=== PATIENT | female | born 1955 | race Two or more races ===

== ENCOUNTER 2025-07-12 12:58 | Emergency (ER) | payer OTHER ==
[~2025-07-12] VITALS: Ht 162.6 cm; Wt 54.4 kg
[2025-07-12] MEDS ORDERED: 0.9 % SODIUM CHLORIDE 1,000 ML IV SCH (15:00)
[2025-07-12] MEDS ORDERED: FAMOTIDINE/PF 20 MG in 0.9 % SODIUM CHLORIDE 8 ML IV PUSH ONE (15:00)
[2025-07-12] MEDS ORDERED: GUAIFEN/DEXTROMETHORPHAN/PE 10 ML BLIST.PACK PO ONE ×2 (15:00→15:37)
[2025-07-12] MEDS ORDERED: ACETAMINOPHEN 500 MG GEL..CAP PO ONE ×2 (15:00→15:34)
[2025-07-12 16:17] LABS: BASO % 0.2 % (0.1-1.2); EOS # 0.01 (0.04-0.54); EOS % 0.2 % (0.7-7.0); LYMPH # 0.61 (1.18-3.74); LYMPH % 13.6 % (19.3-53.1); MEAN PLATELET VOLUME 10.30 fl (9.4-12.4); MONO # 0.11 (0.24-0.82); MONO % 2.5 % (4.7-12.5); NEUT # 3.70 (1.56-6.13); NEUT % 82.8 % (34.0-71.1); RED CELL DISTRIBUTION WIDTH 13.6 % (11.6-14.4)
[2025-07-12 16:21] LABS: INR 1.14
[2025-07-12 16:24] LABS: ALT/SGPT 85.0 U/L (12-78); AST/SGOT 105.0 U/L (15-37); BILIRUBIN TOTAL 0.4 mg/dL (0.3-1.2); BUN CREA RATIO 15.0 (7.0-25.0); CREATININE SERUM 0.81 mg/dL (0.55-1.02); GFR 69.9; GLOBULINA 3.5 G/DL (2.4-3.5); GLUCOSE FASTING 111.0 mg/dL (65-100); OSMOLALITY SERUM 274.0 MOSM/KG (275-295)
[2025-07-12 16:29] LABS: ERYTHROCYTE SEDIMENTATION RATE 31 mm/hr (0-30)
[2025-07-12 16:48] LABS: COVID-19 AG NEGATIVE (NEGATIVE)
[2025-07-12 17:12] LABS: BAND MAN 11.0 %; LYMPHOCYTE MAN 15.0 %; MONOCYTE MAN 2.0 %; NEUTROPHILS MAN 71.0 %
[2025-07-12 17:51] LABS: URINE APPEARANCE Clear; URINE BILIRRUBIN Negative (NEGATIVE); URINE BLOOD Negative; URINE COLOR Yellow; URINE GLUCOSE Negative (NEGATIVE); URINE KETONE Negative (NEGATIVE); URINE LEUKOCYTE Negative; URINE NITRATE Negative; URINE PROTEIN Negative (NEGATIVE); URINE UROBILINOGEN 0.2 E.U./dl
[2025-07-12 17:55] LABS: URINE BACTERIA 7.1 uL (0.0-1933); URINE EPITHELIAL CELLS 30.7 uL (0.0-38.8); URINE RBC 7.3 uL (0.0-20.8); URINE WBC 2.9 uL (0.0-23.2)
[2025-07-12 18:09] LABS: TYPE CELLS RENAL TUBULAR; URINE CAST 0.00 uL (0.0-1.40)
[2025-07-12] MEDS ORDERED: FLONASE ALLERG9.9 ML NASAL (19:43)
[2025-07-12] MEDS ORDERED: SINGULAIR10 MG PO (19:43)
== END 2025-07-12 20:43 | disposition home or self-care (01) ==
LOC: ER 12:58
PROVIDERS: General Practice
DX: J06.9 Acute upper respiratory infection, unspecified (principal); Z20.822 Contact with and (suspected) exposure to COVID-19